=== PATIENT | female | born 1965 | race Caucasian/White ===

== ENCOUNTER 2021-02-19 14:28 | Emergency (ER) | payer OTHER | END 2021-02-19 16:38 | disposition home or self-care (01) | LOC: ER1 14:28 | DX: S93.601A Unspecified sprain of right foot, initial encounter (principal); E11.9 Type 2 diabetes mellitus without complications; Z79.4 Long term (current) use of insulin; I10 Essential (primary) hypertension; J45.909 Unspecified asthma, uncomplicated; Z88.2 Allergy status to sulfonamides; X50.1XXA Overexertion from prolonged static or awkward postures, initial encounter | CPT/HCPCS: 29515; 73630; 99283 ==